=== PATIENT | female | born 1975 | race Hispanic/Latino ===

== ENCOUNTER → 2018-09-18 | Outpatient (CLI) | payer MEDICARE ==
[~2018-09-18] VITALS: Ht 160 cm; Wt 125.2 kg
[~2018-09-18] MED LIST: BUSP5TAB3 PO; DIVA500T2 PO; FERR324T4 PO; INSNOV SQ; INVOK100TB PO; METF-446 PO; REGADENOSON 0.4 MG/5 ML PF SYG IVP SCH; RIVA10TA PO; SERT25TA PO; TRAM50TA4 PO
== END | disposition home or self-care (01) ==
LOC: SHCH 08:32
PROVIDERS: ATTEND Internal Medicine Cardiovascular Disease
DX: R07.9 Chest pain, unspecified (principal); I10 Essential (primary) hypertension
CPT/HCPCS: 78452; 93017; 96374; A9500 ×2; J2785

== ENCOUNTER 2019-12-24 16:32 | Inpatient (IN) | payer MEDICARE ==
[~2019-12-24] VITALS: Ht 172.7 cm; Wt 123.0 kg
[~2019-12-24 16:32] MED LIST changes: -REGADENOSON 0.4 MG/5 ML PF SYG IVP SCH
[2019-12-24] MEDS ORDERED: SODIUM CHLORIDE 0.9% 1000ML 2,000 ML IV ONE (16:53)
[2019-12-24 17:12] LABS: BASOPHILS % (AUTO) 0.9 % (0.0-5.0); HEMATOCRIT 45.7 % (36-48); LYMPHOCYTES % (AUTO) 6.5 % (21.0-51.0); MEAN CORPUSCULAR HEMOGLOBIN 26.8 pg (27.0-33.0); MEAN CORPUSCULAR HGB CONC 29.5 g/dL (32.0-36.0); MEAN CORPUSCULAR VOLUME 90.9 fL (79-99); MONOCYTES % (AUTO) 4.7 % (3.0-13.0); NEUTROPHILS % (AUTO) 86.9 % (40.0-77.0); PLATELET COUNT (AUTO) 437 K/uL (130-400); RED BLOOD CELL COUNT(AUTO) 5.03 MIL/uL (4.00-5.50); RED CELL DISTRIBUTION WIDTH 15.9 % (11.0-15.5); WHITE BLOOD COUNT (AUTO) 11.2 K/uL (4.8-10.8)
[2019-12-24 17:34] LABS: ALBUMIN 4.4 g/dL (3.5-5.0); BILIRUBIN,TOTAL 0.7 mg/dL (0.2-1.0); CREATININE 2.2 mg/dL (0.5-1.5)
[2019-12-24] MEDS ORDERED: INSULIN HUMULIN R 100 UNIT/ML 3ML ONE (17:47)
[2019-12-24] MEDS ORDERED: SODIUM CHLORIDE 0.9% 100 ML IV ONE (17:49)
[2019-12-24 18:07] LABS: ABG BASE EXCESS -22.1 mmol/L (-2.0-3.0); ABG HCO3 4.3 mmol/L (21.0-28.0); ABG PCO2 < 15 mmHg (32-45)
[2019-12-24] MEDS: SODIUM CHLORIDE 0.9% 1000ML 1,000 ML IV SCH (18:45)
[2019-12-24] MEDS ORDERED: INSULIN REGULAR, HUMAN 3ML 100 UNIT in SODIUM CHLORIDE 0.9% 99 ML IV PRN ×2 (18:45)
[2019-12-24] MEDS ORDERED: SODIUM CHLORIDE 0.9% 1000ML 1,000 ML IV SCH (18:45)
[2019-12-24] MEDS ORDERED: POTASSIUM CHLORIDE 10MEQ/100ML 100 ML IV PRN (18:45)
[2019-12-24 19:20] LABS: APPEARANCE,URINE Clear (CLEAR); BILIRUBIN,URINE Negative (NEGATIVE); COLOR,URINE Yellow (YELLOW); GLUCOSE, URINE (UA) >=1000 mg/dL (NEGATIVE); KETONES,URINE >=80 mg/dL (NEGATIVE); LEUKOCYTE ESTERASE ,URINE Negative (NEGATIVE); NITRATE,URINE Negative (NEGATIVE); OCCULT BLOOD,URINE Trace (NEGATIVE); PROTEIN,URINE Negative (NEGATIVE); UROBILINOGEN,URINE 0.2 mg/dL (0.2-1.0)
[2019-12-24 19:33] LABS: BACTERIA,URINE Few /HPF (None Seen); RBC,URINE 0-1 /HPF (0-1); WBC,URINE 0-1 /HPF (0-1)
[2019-12-24 19:34] LABS: AMORPHOUS SEDIMENT,UR Rare /LPF (None Seen); SQUAMOUS EPITHELIAL CELL,UR Rare /HPF (0-2)
[2019-12-24] MEDS ORDERED: SODIUM CHLORIDE 23.4% 30ML VL 154 MEQ in DEXTROSE 10%-WATER 961.5 ML IV SCH (21:15)
[2019-12-24] MEDS ORDERED: LIDOCAINE HCL-MPF 1% 2ML VIAL IJ PRN (21:15)
[2019-12-24] MEDS ORDERED: POTASSIUM CHLORIDE 20MEQ/100ML 100 ML IV PRN (21:15)
[2019-12-24] MEDS ORDERED: LACTATED RINGERS 1000ML 1,000 ML IV SCH (21:15)
[2019-12-24] MEDS ORDERED: DEXTROSE 50%-WATER 50 ML DISP.SYRIN IV PRN (21:30)
[2019-12-24] MEDS ORDERED: GLUCAGON 1MG KIT 1 MG ML IM PRN (21:30)
[2019-12-24] MEDS ORDERED: LACTATED RINGERS 1000ML 1,000 ML IV ONE (21:38)
[2019-12-24 22:11] LABS: ABG BASE EXCESS -15.3 mmol/L (-2.0-3.0); ABG HCO3 11.6 mmol/L (21.0-28.0); ABG PCO2 31 mmHg (32-45)
[2019-12-24 22:14] LABS: ABG OXYGEN SATURATION 65.9 % (95.0-99.0); BASE EXCESS,VENOUS BLOOD GAS -15.9 (-2.0-3.0); HCO3,VENOUS BLOOD GAS 10.6 (21.0-28.0); PCO2,VENOUS BLOOD GAS 28 (32-45); PH,VENOUS BLOOD GAS 7.198 (7.350-7.450)
[2019-12-24 23:18] LABS: CREATININE 1.7 mg/dL (0.5-1.5); MAGNESIUM 2.5 mg/dL (1.80-2.40); PHOSPHORUS 2.3 mg/dL (2.5-4.9); POTASSIUM 4.3 mmol/L (3.5-5.1)
[2019-12-25] VITALS (15 sets, daily range): BP systolic 137–189; BP diastolic 76–97
[2019-12-25] MEDS ORDERED: DEXTROSE 5 %-0.45 % NACL 1,000 ML IV ONE (02:31)
[2019-12-25 02:48] LABS: CREATININE 1.4 mg/dL (0.5-1.5); POTASSIUM 4.4 mmol/L (3.5-5.1)
[2019-12-25 02:51] LABS: MAGNESIUM 2.3 mg/dL (1.80-2.40); PHOSPHORUS 2.1 mg/dL (2.5-4.9)
[2019-12-25 03:38] LABS: ABG BASE EXCESS -11.3 mmol/L (-2.0-3.0); ABG HCO3 13.3 mmol/L (21.0-28.0); ABG PCO2 27 mmHg (32-45)
[2019-12-25] MEDS ORDERED: SODIUM CHLORIDE 0.9% 50 ML IV ONE (04:42)
[2019-12-25] MEDS: SODIUM CHLORIDE 0.9% 1000ML 1,000 ML IV SCH ×10 (04:45→23:31)
[2019-12-25] MEDS ORDERED: SODIUM CHLORIDE 0.9% 100 ML IV ONE (04:52)
[2019-12-25] MEDS ORDERED: INSULIN HUMULIN R 100 UNIT/ML 3ML ONE (04:53)
[2019-12-25 05:37] LABS: CREATININE 1.3 mg/dL (0.5-1.5); POTASSIUM 4.7 mmol/L (3.5-5.1)
[2019-12-25] MEDS: HUMALOG PO SS1 SQ SCH ×4 (07:30→20:50)
[2019-12-25 07:39] LABS: CREATINE KINASE, TOTAL 154 U/L (21-232); MYOGLOBIN 129 ng/mL (10-92); TROPONIN I < 0.04 ng/mL (0.00-0.06)
[2019-12-25] MEDS: FAMOTIDINE/PF 20 MG/2 ML VIAL IV SCH ×2 (09:00→20:45)
[2019-12-25 10:47] LABS: BASOPHILS % (AUTO) 0.4 % (0.0-5.0); EOSINOPHILS % (AUTO) 0.4 % (0.0-8.0); HEMATOCRIT 35.5 % (36-48); LYMPHOCYTES % (AUTO) 14.8 % (21.0-51.0); MEAN CORPUSCULAR HEMOGLOBIN 26.5 pg (27.0-33.0); MEAN CORPUSCULAR HGB CONC 33.8 g/dL (32.0-36.0); MEAN CORPUSCULAR VOLUME 78.4 fL (79-99); NEUTROPHILS % (AUTO) 76.1 % (40.0-77.0); PLATELET COUNT (AUTO) 328 K/uL (130-400); RED BLOOD CELL COUNT(AUTO) 4.53 MIL/uL (4.00-5.50); RED CELL DISTRIBUTION WIDTH 14.9 % (11.0-15.5); WHITE BLOOD COUNT (AUTO) 11.5 K/uL (4.8-10.8)
[2019-12-25 10:51] LABS: CREATININE 1.1 mg/dL (0.5-1.5); MAGNESIUM 2.1 mg/dL (1.80-2.40); PHOSPHORUS 1.3 mg/dL (2.5-4.9); POTASSIUM 3.6 mmol/L (3.5-5.1)
[2019-12-25] MEDS ORDERED: BUSP10TA3 PO (10:52)
[2019-12-25] MEDS ORDERED: LISI-613 PO (10:52)
[2019-12-25] MEDS ORDERED: ATOR40TA69 PO (10:52)
[2019-12-25] MEDS ORDERED: MELO-108 PO (10:52)
[2019-12-25] MEDS ORDERED: SERT100T PO (10:52)
[2019-12-25] MEDS ORDERED: INSU100I45 SQ (10:52)
[2019-12-25] MEDS ORDERED: INSU100V12 SQ (10:52)
[2019-12-25] MEDS ORDERED: FLUT16H NS (10:52)
[2019-12-25] MEDS ORDERED: SITA1TAB6 PO (10:52)
[2019-12-25 11:09] LABS: LIPASE 872 U/L (114-286); TRIGLYCERIDES 107 mg/dL (30-200)
[2019-12-25] MEDS ORDERED: POTASSIUM PHOS 15 mMOL+NS250ML 250 ML IV PRN (14:45)
[2019-12-25] MEDS: ENOXAPARIN SODIUM 40 MG/0.4 ML SYRINGE SQ SCH (15:32)
[2019-12-25] MEDS: MAGNESIUM 2GM PREMIX 50ML 50 ML IV SCH (15:32)
[2019-12-25 16:54] LABS: CREATININE 1.1 mg/dL (0.5-1.5); POTASSIUM 3.7 mmol/L (3.5-5.1)
--- NOTE | 2019-12-25 19:00 | NUR ---
ACCEPTED CARE ACCEPTED CARE REPORT RECEIVED USING SBAR FORMAT
[2019-12-25 23:30] LABS: MAGNESIUM 1.7 mg/dL (1.80-2.40); POTASSIUM 3.7 mmol/L (3.5-5.1)
[2019-12-25] MEDS: DEXTROSE 5 %-0.45 % NACL 1,000 ML IV PRN (23:32)
[2019-12-26] VITALS (23 sets, daily range): BP systolic 159–203; BP diastolic 73–106
[2019-12-26 04:55] LABS: BASOPHILS % (AUTO) 0.3 % (0.0-5.0); EOSINOPHILS % (AUTO) 0.7 % (0.0-8.0); HEMATOCRIT 33.5 % (36-48); MEAN CORPUSCULAR HEMOGLOBIN 26.8 pg (27.0-33.0); MEAN CORPUSCULAR VOLUME 78.8 fL (79-99); MONOCYTES % (AUTO) 10.4 % (3.0-13.0); NEUTROPHILS % (AUTO) 55.3 % (40.0-77.0); PLATELET COUNT (AUTO) 267 K/uL (130-400); RED BLOOD CELL COUNT(AUTO) 4.25 MIL/uL (4.00-5.50); WHITE BLOOD COUNT (AUTO) 6.9 K/uL (4.8-10.8)
[2019-12-26 05:10] LABS: ALBUMIN 3.1 g/dL (3.5-5.0); BILIRUBIN,TOTAL 0.7 mg/dL (0.2-1.0); MAGNESIUM 1.8 mg/dL (1.80-2.40); PHOSPHORUS 1.6 mg/dL (2.5-4.9); POTASSIUM 3.2 mmol/L (3.5-5.1); TOTAL PROTEIN, SERUM 6.7 g/dL (6.0-8.3)
[2019-12-26 05:30] LABS: HEMOGLOBIN A1C 10.5 % (4.0-6.0)
[2019-12-26] MEDS: SODIUM CHLORIDE 0.9% 1000ML 1,000 ML IV SCH ×8 (05:45→21:28)
[2019-12-26] MEDS: HUMALOG PO SS1 SQ SCH ×4 (06:14→21:00)
[2019-12-26] MEDS ORDERED: POTASSIUM PHOS 15 mMOL+NS250ML 250 ML IV PRN (07:15)
[2019-12-26] MEDS: ENOXAPARIN SODIUM 40 MG/0.4 ML SYRINGE SQ SCH (09:00)
[2019-12-26] MEDS ORDERED: ONDANSETRON HCL 4 MG/2 ML VIAL ONE ×2 (09:57→21:18)
[2019-12-26 10:53] LABS: CREATININE 0.9 mg/dL (0.5-1.5); MAGNESIUM 1.7 mg/dL (1.80-2.40); POTASSIUM 3.3 mmol/L (3.5-5.1)
[2019-12-26] MEDS ORDERED: ENOXAPARIN SODIUM 40 MG/0.4 ML SYRINGE SQ SCH (11:00)
[2019-12-26] MEDS ORDERED: GABA300C PO (11:33)
[2019-12-26] MEDS ORDERED: TRAZ-187 PO (11:33)
--- NOTE | 2019-12-26 11:58 | NUR ---
DC PLAN PATIENT LIVES WITH MOTHER AND TWO TEENS. INDEPENDENT ABLE TO PERFORM ADL'S. PATIENT HAS NO SERVICES OR DME'S. FEELS SAFE TO RETURN HOME. GOES TO [facility] FOR MEDICATION. Addendum: 12/26/19 at 1203 by YUNIOR HOUSE RN CM Amended: Links added.
[2019-12-26] MEDS: FAMOTIDINE/PF 20 MG/2 ML VIAL IV SCH (16:34)
[2019-12-26] MEDS ORDERED: INSULIN GLARGINE 100 UNITS/ML 10 ML VIAL SQ ONE (17:00)
[2019-12-26] MEDS: INSULIN HUMULIN R 100 UNIT/ML 3ML SQ SCH (18:41)
[2019-12-26] MEDS: POTASSIUM CHLORIDE 10% ELIXIR 20 MEQ/15 ML UDCUP PO PRN ×2 (21:31→23:18)
[2019-12-26] MEDS: MAGNESIUM 2GM PREMIX 50ML 50 ML IV SCH (21:31)
[2019-12-26] MEDS: SERTRALINE HCL 50 MG TABLET PO SCH (21:57)
[2019-12-26] MEDS: TRAZODONE HCL 100 MG TABLET PO SCH (21:57)
[2019-12-26] MEDS: GABAPENTIN 300 MG CAPSULE PO SCH (21:57)
[2019-12-26] MEDS: HYDRALAZINE HCL 20 MG/ML VIAL IV PRN (21:59)
[2019-12-27] VITALS (16 sets, daily range): BP systolic 144–220; BP diastolic 69–108
[2019-12-27] MEDS: DEXTROSE 5 %-0.45 % NACL 1,000 ML IV PRN (00:31)
[2019-12-27 04:51] LABS: BASOPHILS % (AUTO) 0.7 % (0.0-5.0); EOSINOPHILS % (AUTO) 0.3 % (0.0-8.0); HEMATOCRIT 33.4 % (36-48); LYMPHOCYTES % (AUTO) 36.6 % (21.0-51.0); MEAN CORPUSCULAR HEMOGLOBIN 26.8 pg (27.0-33.0); MEAN CORPUSCULAR HGB CONC 33.8 g/dL (32.0-36.0); MEAN CORPUSCULAR VOLUME 79.3 fL (79-99); MONOCYTES % (AUTO) 10.9 % (3.0-13.0); NEUTROPHILS % (AUTO) 51.3 % (40.0-77.0); PLATELET COUNT (AUTO) 239 K/uL (130-400); RED BLOOD CELL COUNT(AUTO) 4.21 MIL/uL (4.00-5.50); RED CELL DISTRIBUTION WIDTH 15.6 % (11.0-15.5); WHITE BLOOD COUNT (AUTO) 5.8 K/uL (4.8-10.8)
[2019-12-27 05:17] LABS: ALBUMIN 3.1 g/dL (3.5-5.0); BILIRUBIN,TOTAL 0.5 mg/dL (0.2-1.0); CREATININE 0.5 mg/dL (0.5-1.5); MAGNESIUM 2.6 mg/dL (1.80-2.40); PHOSPHORUS 2.3 mg/dL (2.5-4.9); POTASSIUM 3.6 mmol/L (3.5-5.1); TOTAL PROTEIN, SERUM 6.2 g/dL (6.0-8.3)
[2019-12-27] MEDS: HUMALOG PO SS1 SQ SCH (06:46)
[2019-12-27] MEDS: INSULIN HUMULIN R 100 UNIT/ML 3ML SQ SCH ×2 (06:47→12:33)
[2019-12-27] MEDS: INSULIN GLARGINE 100 UNITS/ML 10 ML VIAL SQ SCH ×2 (06:48→12:34)
[2019-12-27] MEDS: HYDRALAZINE HCL 20 MG/ML VIAL IV PRN (07:03)
--- NOTE | 2019-12-27 07:30 | NUR ---
PT HAS BEEN ASSESSED AND PT WAS ADVISED TO TAKE JEWELRY OFF IN BATHROOM WHEN SHE GOT UP TO THE BATHROOM . PT IS AWARE THAT SHE HAS A PROCEDURE SCHEDULED AT THE [facility] ARE[facility].
[2019-12-27] MEDS: FAMOTIDINE/PF 20 MG/2 ML VIAL IV SCH (09:00)
[2019-12-27] MEDS: LISINOPRIL 20 MG TABLET PO SCH (09:00)
[2019-12-27] MEDS ORDERED: GADODIAMIDE 10 MMOL/20 ML VIAL IV ONE (09:54)
[2019-12-27] MEDS ORDERED: NEUTRA-PHOS PACKET 1 EACH PO SCH (14:00)
[2019-12-27] MEDS: AMLODIPINE BESYLATE 5 MG TAB PO SCH (16:57)
[2019-12-27] MEDS: ENOXAPARIN SODIUM 40 MG/0.4 ML SYRINGE SQ SCH (16:57)
[2019-12-27] MEDS: NEUTRA-PHOS PACKET 1 EACH PO SCH ×2 (17:00→20:34)
[2019-12-27] MEDS ORDERED: FLU VACC QS2020-21(6MOS UP)/PF 60 MCG/0.5 ML ML IM ONE (20:00)
[2019-12-27] MEDS: SERTRALINE HCL 50 MG TABLET PO SCH (20:32)
[2019-12-27] MEDS: TRAZODONE HCL 100 MG TABLET PO SCH (20:32)
[2019-12-27] MEDS: GABAPENTIN 300 MG CAPSULE PO SCH (20:33)
[2019-12-28] VITALS (7 sets, daily range): BP systolic 109–215; BP diastolic 63–115
[2019-12-28] MEDS: HYDRALAZINE HCL 20 MG/ML VIAL IV PRN (01:58)
[2019-12-28] MEDS ORDERED: CLONIDINE HCL 0.1 MG TABLET PO PRN (02:15)
[2019-12-28] MEDS: POTASSIUM CHLORIDE 20 MEQ ERTAB PO PRN ×3 (03:18→10:45)
[2019-12-28 04:04] LABS: BASOPHILS % (AUTO) 0.6 % (0.0-5.0); EOSINOPHILS % (AUTO) 1.8 % (0.0-8.0); HEMATOCRIT 33.8 % (36-48); LYMPHOCYTES % (AUTO) 38.7 % (21.0-51.0); MEAN CORPUSCULAR HEMOGLOBIN 26.5 pg (27.0-33.0); MEAN CORPUSCULAR HGB CONC 33.4 g/dL (32.0-36.0); MEAN CORPUSCULAR VOLUME 79.2 fL (79-99); MONOCYTES % (AUTO) 8.8 % (3.0-13.0); NEUTROPHILS % (AUTO) 49.8 % (40.0-77.0); PLATELET COUNT (AUTO) 259 K/uL (130-400); RED BLOOD CELL COUNT(AUTO) 4.27 MIL/uL (4.00-5.50); RED CELL DISTRIBUTION WIDTH 15.5 % (11.0-15.5); WHITE BLOOD COUNT (AUTO) 6.6 K/uL (4.8-10.8)
[2019-12-28 04:19] LABS: ALBUMIN 3.1 g/dL (3.5-5.0); BILIRUBIN,TOTAL 0.5 mg/dL (0.2-1.0); CREATININE 0.6 mg/dL (0.5-1.5); PHOSPHORUS 2.3 mg/dL (2.5-4.9); TOTAL PROTEIN, SERUM 6.3 g/dL (6.0-8.3)
[2019-12-28 04:27] LABS: POTASSIUM 2.9 mmol/L (3.5-5.1)
--- NOTE | 2019-12-28 04:28 | NUR ---
CRITICAL LAB POTASSIUM OF 2.9 REPORTED FROM TRE[facility]IN IN LAB. 20 MEQ K+ TAB ADMIN @ 0315.
--- NOTE | 2019-12-28 04:58 | NUR ---
NOTE 0433 RECEIVED REPORT FORM YAMILETH AGOSTO ON PATIENT. 0458 PATIENT ARRIVED VIA WHEELCHAIR. ORIENTED PATIENT TO ROOM. PROVIDED CALL LIGHT AND PHONE. BEDSIDE TABLE AND WATER WITHIN REACH.DENIES ANY PAIN OR DISCOMFORTS AT THIS TIME. ONLY ASKING FOR A BLANKET WHICH WAS PROVIDED.
[2019-12-28] MEDS: INSULIN HUMULIN R 100 UNIT/ML 3ML SQ SCH ×7 (07:22→21:00)
[2019-12-28] MEDS: ENOXAPARIN SODIUM 40 MG/0.4 ML SYRINGE SQ SCH (09:19)
[2019-12-28] MEDS: LISINOPRIL 20 MG TABLET PO SCH (09:20)
[2019-12-28] MEDS: AMLODIPINE BESYLATE 5 MG TAB PO SCH (09:20)
[2019-12-28] MEDS: FAMOTIDINE/PF 20 MG/2 ML VIAL IV SCH (09:21)
[2019-12-28] MEDS: NEUTRA-PHOS PACKET 1 EACH PO SCH ×2 (09:21→13:44)
[2019-12-28] MEDS: INSULIN GLARGINE 100 UNITS/ML 10 ML VIAL SQ SCH (09:24)
[2019-12-28] MEDS ORDERED: ACETAMINOPHEN 325 MG TAB PO PRN (13:30)
[2019-12-28] MEDS: POTASSIUM CHLORIDE 20 MEQ ERTAB PO SCH (13:42)
[2019-12-28] MEDS: METOPROLOL TARTRATE 25 MG TAB PO SCH ×2 (13:43→20:18)
[2019-12-28] MEDS: GABAPENTIN 300 MG CAPSULE PO SCH (20:17)
[2019-12-28] MEDS: SERTRALINE HCL 50 MG TABLET PO SCH (20:17)
[2019-12-28] MEDS: TRAZODONE HCL 100 MG TABLET PO SCH (20:18)
[2019-12-29 03:57] VITALS: BP 116/69
[2019-12-29 04:49] LABS: HEMATOCRIT 34.2 % (36-48); MEAN CORPUSCULAR HEMOGLOBIN 26.3 pg (27.0-33.0); MEAN CORPUSCULAR HGB CONC 32.2 g/dL (32.0-36.0); MEAN CORPUSCULAR VOLUME 81.6 fL (79-99); PLATELET COUNT (AUTO) 269 K/uL (130-400); RED BLOOD CELL COUNT(AUTO) 4.19 MIL/uL (4.00-5.50); WHITE BLOOD COUNT (AUTO) 7.9 K/uL (4.8-10.8)
[2019-12-29 05:02] LABS: BASOPHILS % (MANUAL) 1 % (0-2); EOSINOPHILS % (MANUAL) 2 % (1-6); LYMPHOCYTES % (MANUAL) 45 % (22-44); MAN.DIFF COMMENT-IMPRESSION MANUAL DIFFERENTIAL; MONOCYTES % (MANUAL) 7 % (2-9); REACTIVE LYMPHOCYTES 3 % (0-0); SEGMENTED NEUTROPHILS % 42 % (40-70)
[2019-12-29 05:11] LABS: ALBUMIN 2.8 g/dL (3.5-5.0); BILIRUBIN,TOTAL 0.3 mg/dL (0.2-1.0); CREATININE 0.6 mg/dL (0.5-1.5); TOTAL PROTEIN, SERUM 5.9 g/dL (6.0-8.3)
[2019-12-29] MEDS: INSULIN HUMULIN R 100 UNIT/ML 3ML SQ SCH ×5 (05:40→16:30)
[2019-12-29] MEDS: INSULIN GLARGINE 100 UNITS/ML 10 ML VIAL SQ SCH (07:51)
[2019-12-29 08:11] VITALS: BP 117/48
[2019-12-29] MEDS: FAMOTIDINE/PF 20 MG/2 ML VIAL IV SCH (08:25)
[2019-12-29] MEDS: METOPROLOL TARTRATE 25 MG TAB PO SCH (08:29)
[2019-12-29] MEDS: LISINOPRIL 20 MG TABLET PO SCH (08:29)
[2019-12-29] MEDS: AMLODIPINE BESYLATE 5 MG TAB PO SCH (08:29)
[2019-12-29] MEDS: ENOXAPARIN SODIUM 40 MG/0.4 ML SYRINGE SQ SCH (08:34)
[2019-12-29 11:21] VITALS: BP 121/53
[2019-12-29] MEDS: POTASSIUM CHLORIDE 20 MEQ ERTAB PO SCH (13:00)
[2019-12-29 16:12] VITALS: BP 111/59
[2019-12-29] MEDS ORDERED: INSULIN HUMULIN R 100 UNIT/ML 3ML SQ SCH (17:00)
[2019-12-29] MEDS ORDERED: GABA300C PO (17:02)
[2019-12-29] MEDS ORDERED: INSU100V3 SQ (17:02)
[2019-12-29] MEDS ORDERED: METO25 PO (17:02)
[2019-12-29] MEDS ORDERED: LISI-613 PO (17:02)
[2019-12-29] MEDS ORDERED: SERT50TA PO (17:02)
[2019-12-29] MEDS ORDERED: AMLO5TAB4 PO (17:02)
[2019-12-29] MEDS ORDERED: INSLAN SQ (17:08)
[2019-12-30] MEDS ORDERED: INSULIN GLARGINE 100 UNITS/ML 10 ML VIAL SQ SCH (09:00)
== END 2019-12-29 19:00 | disposition home or self-care (01) | DRG 438 ==
LOC: EDH 16:32 → EDHIP 18:34 → 2DH 12-25 07:42 → 3AH 12-28 04:50
PROVIDERS: ADMIT Internal Medicine; ATTEND Internal Medicine
DX: K85.10 Biliary acute pancreatitis without necrosis or infection (principal); E11.10 Type 2 diabetes mellitus with ketoacidosis without coma; E87.1 Hypo-osmolality and hyponatremia; N17.9 Acute kidney failure, unspecified; E11.22 Type 2 diabetes mellitus with diabetic chronic kidney disease; E87.5 Hyperkalemia; E66.01 Morbid (severe) obesity due to excess calories; E86.1 Hypovolemia; E87.6 Hypokalemia; E78.5 Hyperlipidemia, unspecified; E83.39 Other disorders of phosphorus metabolism; E86.0 Dehydration; N18.9 Chronic kidney disease, unspecified; D64.9 Anemia, unspecified; F31.9 Bipolar disorder, unspecified; I48.91 Unspecified atrial fibrillation; I12.9 Hypertensive chronic kidney disease with stage 1 through stage 4 chronic kidney disease, or unspecified chronic kidney disease; Z23 Encounter for immunization; Z79.01 Long term (current) use of anticoagulants; Z79.4 Long term (current) use of insulin; Z82.5 Family history of asthma and other chronic lower respiratory diseases; Z98.891 History of uterine scar from previous surgery; Z88.8 Allergy status to other drugs, medicaments and biological substances
CPT/HCPCS: 36415; 36600; 71045; 76705; 76770; 80048; 80053; 80061; 81001; 82010; 82150; 82550; 82803; 82948; 83036; 83690; 83735; 83874; 84100; 84132; 84145; 84478; 84484; 85025; 87088; 93005; 99291; A9579; G0008; G0378; J0360; J1650; J1815; J2405; J3475; J3490; J7030; J7042; J7120; J7131

== ENCOUNTER 2021-10-27 18:04 | Emergency (ER) | payer MEDICARE ==
[~2021-10-27] VITALS: Ht 162.6 cm; Wt 127.0 kg
[~2021-10-27 18:04] MED LIST changes: +AMLO5TAB4 PO; +ATOR40TA69 PO; -BUSP5TAB3 PO; -DIVA500T2 PO; +GABA300C PO; +INSLAN SQ; -INSNOV SQ; +INSU100V3 SQ; -INVOK100TB PO; +LISI20TA24 PO; +MELO-108 PO; -METF-446 PO; +METO25 PO; -RIVA10TA PO; -SERT25TA PO; +SERT50TA PO; -TRAM50TA4 PO
[2021-10-27 18:37] VITALS: BP 156/69
[2021-10-27] MEDS ORDERED: ACET-66 PO (18:53)
[2021-10-27] MEDS ORDERED: GUAIF10 PO (18:53)
[2021-10-27] MEDS ORDERED: AZIT500T2 PO (18:53)
[2021-10-27] MEDS ORDERED: IBUPROFEN 600 MG TABLET PO ONE (19:00)
== END 2021-10-27 19:28 | disposition home or self-care (01) ==
LOC: EDH 18:04
DX: U07.1 COVID-19 (principal); E11.9 Type 2 diabetes mellitus without complications; I10 Essential (primary) hypertension; F31.9 Bipolar disorder, unspecified; Z88.8 Allergy status to other drugs, medicaments and biological substances; Z79.4 Long term (current) use of insulin; Z79.899 Other long term (current) drug therapy; Z98.890 Other specified postprocedural states
CPT/HCPCS: 99283; 87635; 87880; 87804 ×2; C9803